=== PATIENT | male | born 1965 | race African-American/Black ===

== ENCOUNTER 2017-12-05 05:34 | Inpatient (IN) ==
[2017-12-05] MEDS ORDERED: BUPIVACAINE SPINAL 0.75% 2 ML AMP SPINAL ONE (05:54)
[2017-12-05] MEDS ORDERED: PROPOFOL 500 MG/50 ML BOTTLE IV ONE (05:54)
[2017-12-05] MEDS ORDERED: ceFAZolin 1,000 MG VIAL ONE (05:59)
[2017-12-05] MEDS ORDERED: VANCOMYCIN 1,000 MG VIAL ONE (05:59)
[2017-12-05] MEDS ORDERED: BUPIVACAINE 0.5% /EPI 10 ML VIAL ONE (05:59)
[2017-12-05] MEDS ORDERED: ceFAZolin 1,000 MG in SYRINGE 1 EACH IV ONE (06:00)
[2017-12-05] MEDS ORDERED: VANCOMYCIN INJ 1,000 MG in SODIUM CHLORIDE 0.9% 250 ML IV ONE (06:00)
[2017-12-05] MEDS ORDERED: GABAPENTIN 400 MG CAPSULE PO ONE (06:13)
[2017-12-05] MEDS ORDERED: ACETAMINOPHEN 500 MG TABLET PO ONE (06:13)
[2017-12-05] MEDS ORDERED: LACTATED RINGERS 1,000 ML IV SCH (06:30)
[2017-12-05] MEDS ORDERED: MORPHINE 4 MG/1 ML VIAL IV PRN ×2 (07:12→08:00)
[2017-12-05] MEDS ORDERED: NALOXONE 0.4 MG/ML VIAL IV PRN (07:12)
[2017-12-05] MEDS ORDERED: TEMAZEPAM 7.5 MG CAPSULE PO PRN (07:12)
[2017-12-05] MEDS ORDERED: ONDANSETRON 4 MG/2 ML VIAL IV PRN (07:12)
[2017-12-05] MEDS ORDERED: diphenhydrAMINE CAP 25 MG CAPSULE PO PRN (07:12)
[2017-12-05] MEDS ORDERED: PROMETHAZINE 25 MG/1 ML VIAL IM PRN (07:12)
[2017-12-05] MEDS ORDERED: LACTULOSE 20 GM/30 ML UDCUP PO PRN (07:12)
[2017-12-05] MEDS ORDERED: BISACODYL 10 MG SUPP RECTAL PRN (07:12)
[2017-12-05] MEDS ORDERED: MORPHINE PCA 30 MG/30 ML SYRINGE IV ONE (08:54)
[2017-12-05] MEDS: MORPHINE PCA 30 MG/30 ML SYRINGE IV SCH ×2 (09:06→22:52)
[2017-12-05] MEDS ORDERED: TRANEXAMIC ACID 1,000 MG/10 ML VIAL ONE (09:19)
[2017-12-05] MEDS ORDERED: MIDAZOLAM 2 MG/2 ML VIAL ONE (09:19)
[2017-12-05] MEDS ORDERED: fentaNYL 100 MCG/2 ML VIAL ONE (09:19)
[2017-12-05 10:35] LABS: Basophils % 0.5 % (0.0-0.8); Eosinophils % 0.2 % (0.00-10.9); Hematocrit 40.4 VOL% (42.0-52.0); Hemoglobin 12.7 GM/DL (14.0-18.0); Immature Granulocytes % 0.5 %; Immature Granulocytes Absolute 0.03 #; Lymphocytes # 1.9 10*3/uL (1.4-4.0); Lymphocytes % 31.6 % (21.2-54.2); Mean Corpuscular HGB Conc 31.4 GM/DL (32-36); Mean Corpuscular Hemoglobin 27 PG (27-34); Mean Corpuscular Volume 84.3 FL (87-102); Mean Platelet Volume 11.8 FL (9.6-12.0); Monocytes # 0.4 10*3/uL (0.11-0.8); Monocytes % 7.1 % (1.7-12.7); Neutrophils # 3.6 10*3/uL (1.4-7.4); Neutrophils % 60.1 % (38.7-73.9); Platelet Count 204 T/CUMM (130-400); Red Blood Count 4.79 MC/CUMM (3.8-5.5); Red Cell Distribution Width 13.7 % (9.3-17.3)
[2017-12-05 10:53] LABS: Calcium 8.2 MG/DL (8.5-10.1); Osmolality,Calculated 283.3 MOS/KG (273-304); Potassium 4.1 MMOL/L (3.5-5.1)
[2017-12-05] MEDS: metFORMIN 500 MG TABLET PO SCH ×2 (12:47→21:10)
[2017-12-05] MEDS: LOSARTAN 25 MG TABLET PO SCH (12:47)
[2017-12-05] MEDS: ceFAZolin 2,000 MG in PREMIX 1 EACH IV SCH ×2 (12:56→21:10)
[2017-12-05] MEDS: ASPIRIN EC 81 MG TABLET PO SCH (12:59)
[2017-12-05] MEDS: LOVASTATIN 20 MG TABLET PO SCH (12:59)
[2017-12-05] MEDS: DOCUSATE SODIUM 100 MG CAPSULE PO SCH ×2 (12:59→21:10)
[2017-12-05] MEDS: LACTATED RINGERS 1,000 ML IV SCH (15:45)
[2017-12-05] MEDS: FONDAPARINUX 2.5 MG/0.5 ML SYRINGE SUBCUT SCH (18:38)
[2017-12-06 05:15] LABS: Basophils % 0.3 % (0.0-0.8); Eosinophils # 0.1 10*3/uL (0.0-0.87); Eosinophils % 1.2 % (0.00-10.9); Hematocrit 35.6 VOL% (42.0-52.0); Hemoglobin 11.3 GM/DL (14.0-18.0); Immature Granulocytes % 0.5 %; Immature Granulocytes Absolute 0.05 #; Lymphocytes # 2.4 10*3/uL (1.4-4.0); Lymphocytes % 24.5 % (21.2-54.2); Mean Corpuscular HGB Conc 31.7 GM/DL (32-36); Mean Corpuscular Hemoglobin 27 PG (27-34); Mean Corpuscular Volume 83.8 FL (87-102); Mean Platelet Volume 12.2 FL (9.6-12.0); Monocytes # 0.9 10*3/uL (0.11-0.8); Monocytes % 9.7 % (1.7-12.7); Neutrophils # 6.1 10*3/uL (1.4-7.4); Neutrophils % 63.8 % (38.7-73.9); Platelet Count 195 T/CUMM (130-400); Red Blood Count 4.25 MC/CUMM (3.8-5.5); Red Cell Distribution Width 13.9 % (9.3-17.3); White Blood Count 9.6 T/CUMM (4-12)
[2017-12-06 05:32] LABS: Osmolality,Calculated 280.5 MOS/KG (273-304); Potassium 3.9 MMOL/L (3.5-5.1)
[2017-12-06] MEDS: metFORMIN 500 MG TABLET PO SCH ×2 (08:59→20:31)
[2017-12-06] MEDS: ASPIRIN EC 81 MG TABLET PO SCH (08:59)
[2017-12-06] MEDS: LOVASTATIN 20 MG TABLET PO SCH (08:59)
[2017-12-06] MEDS: DOCUSATE SODIUM 100 MG CAPSULE PO SCH ×2 (08:59→20:31)
[2017-12-06] MEDS: LOSARTAN 25 MG TABLET PO SCH (08:59)
[2017-12-06] MEDS: MORPHINE PCA 30 MG/30 ML SYRINGE IV SCH ×2 (10:10→18:24)
[2017-12-06] MEDS: FONDAPARINUX 2.5 MG/0.5 ML SYRINGE SUBCUT SCH (17:41)
[2017-12-06] MEDS: LACTATED RINGERS 1,000 ML IV SCH (19:10)
[2017-12-07] MEDS: ASPIRIN EC 81 MG TABLET PO SCH (09:03)
[2017-12-07] MEDS: LOVASTATIN 20 MG TABLET PO SCH (09:03)
[2017-12-07] MEDS: metFORMIN 500 MG TABLET PO SCH ×2 (09:04→21:03)
[2017-12-07] MEDS: DOCUSATE SODIUM 100 MG CAPSULE PO SCH ×2 (09:04→21:03)
[2017-12-07] MEDS: MAGNESIUM HYDROXIDE SUSP 30 ML UDCUP PO PRN ×2 (09:04→16:16)
[2017-12-07] MEDS: LOSARTAN 25 MG TABLET PO SCH (09:04)
[2017-12-08] MEDS: DOCUSATE SODIUM 100 MG CAPSULE PO SCH (08:39)
[2017-12-08] MEDS: LOVASTATIN 20 MG TABLET PO SCH (08:39)
[2017-12-08] MEDS: metFORMIN 500 MG TABLET PO SCH (08:39)
[2017-12-08] MEDS: LOSARTAN 25 MG TABLET PO SCH (08:39)
[2017-12-08] MEDS: ASPIRIN EC 81 MG TABLET PO SCH (08:39)
[2017-12-08 11:43] VITALS: BP 150/65
== END 2017-12-08 14:08 | disposition swing bed (61) | DRG 470 ==
LOC: N.OR 05:34 → N.SDSINP 05:40 → N.3E 07:12 → N.SDSINP 07:19
PROVIDERS: ADMIT Orthopaedic Surgery; ATTEND Orthopaedic Surgery